=== PATIENT | female | born 1940 | race Hispanic/Latino ===

== ENCOUNTER 2019-11-21 15:00 | Emergency (ER) | payer MEDICARE ==
[~2019-11-21] VITALS: Ht 157.5 cm; Wt 79.8 kg
[~2019-11-21 15:00] MED LIST: COMBIGAN EYE DRO5 ML OU; LATANOPROST2.5 ML OU; LEVOTHYROXINE50 MCG PO; LEVOXYL PO; LISINOPRIL-HCT1 EAC2 PO
--- NOTE | 2019-11-21 15:36 | Emergency Department Note ---
History of Present Illnes History of Present Illness Chief Complaint: rash History of Present Illness This is a 78 year old female, with a history of hypertension and hyperlipidemia, who presents with a one-week history of a rash on the back of her neck that is pruritic. Patient states that she had been leaning her neck on a blanket, which she thought might be irritating her neck, so she stopped using the blanket 2 days ago. She also noted that the rash spread to the anterior neck area over the last several days. There is no drainage, or vesicles on the rash. She has been applying some cortisone cream to the area on her neck, and she took Claritin yesterday. She denies any new lotions, soaps, or other new personal hygiene items. She denies any history of eczema, psoriasis, or other chronic skin conditions. Patient denies any itching of the scalp. Historian: Patient Arrival Mode: Car Nocturnist Physician Required: No Onset (how long ago): week(s) (1) Location: back of neck Quality: pruritic Radiation: Reports non-radiation Severity: moderate Onset quality: sudden Duration (how long): week(s) (1) Timing of current episode: constant Progression: unchanged Chronicity: new Context: Denies recent illness, Denies recent surgery, Denies recent travel, Denies new medications Relieving factors: none Exacerbating factors: none Associated symptoms: Reports denies other symptoms Treatments prior to arrival: other (Cortisone cream) Past Medical/Family History Physician Review I have reviewed the patient's past medical and family history. Any updates have been documented here. Past Medical History Recent Fever: No Clinical Suspicion of Infectio: No New/Unexplained Change in Ment: No Past Medical History: Hypertension, Hyperlipedemia Other Medical History: GLAUCOMA Past Surgical History: Cholecysctectomy Other Surgery: LEFT KNEE ARTHROSCOPY Social History Smoking Cessation: Never Smoker Alcohol Use: Occasional Any Illegal Drug Use: No TB Exposure/Symptoms: No Physically hurt or threatened: No Family History Family history of heart diseas: No Other Last Tetanus: UNKNOWN Review of Systems Review of Systems Constitutional: Denies chills, Denies fever EENTM: Reports no symptoms Cardiovascular: Reports no symptoms Respiratory: Denies chest congestion, Denies cough Gastrointestinal: Denies nausea, Denies vomiting Musculoskeletal: Denies joint pain, Denies joint swelling Integumentary: Reports rash (anterior and posterior neck, pruritic rash;) Neurological: Reports no symptoms Psychological: Reports no symptoms Review of other systems: All other systems negative Physical Exam Related Data Allergies: Coded Allergies: Penicillins (Verified Allergy, Mild, RASH, 01/28/14) cortisone (Verified Allergy, Unknown, LEG CRAMPS, 07/11/18) Vital signs reviewed: Yes Physical Exam CONSTITUTIONAL Constitutional: Present well-developed, Present well-nourished; Absent distressed, Absent ill appearing HENT HENT: Present normocephalic, Present atraumatic, Present oropharynx clear/moist, Present nose normal HENT L/R: Present left ext ear normal, Present right ext ear normal EYES Eyes: Reports PERRL, Reports conjunctivae normal NECK Neck: Present ROM normal PULMONARY Pulmonary: Present effort normal, Present breath sounds normal CARDIOVASCULAR Cardiovascular: Present regular rhythm, Present heart sounds normal, Present capillary refill normal, Present normal rate GASTROINTESTINAL GENITOURINARY SKIN Skin: Present warm, Present dry, Present rash (slightly erythematous, maculopapular rash on the nape of the neck and also on the anterior neck, without warmth or drainage.) MUSCULOSKELETAL Musculoskeletal: Present ROM normal NEUROLOGICAL Neurological: Present alert, Present oriented x 3, Present no gross motor or sensory deficits PSYCHOLOGICAL Psychological: Present mood/affect normal, Present judgement normal Assessment & Plan Medical Decision Making MDM - Use the Triamcinolone Cream, as directed, 3 times per day as needed for this rash. You will likely need to treat for at least 7-10 days, to resolve the rash. - In addition to the prescribed cream, recommend that you take Zyrtec/Cetirizine 10 mg - 1 pill daily 10-14 days. - Follow-up with your Primary Care Physician next week, if your symptoms are not improving. Rx handwritten, as unable to input directions for printed Rx. The Rx given to patient was: Triamcinolone Cream 0.1 % apply small amount to rash tid, prn, avoid face. Disp 30 gram tube, no RF. Assessment & Plan Final Impression: (1) Contact dermatitis (2) Hypertension (3) Hyperlipidemia Depart Disposition: HOME, SELF-FPC Meds Reported Medications Levothyroxine Sodium (LEVOTHYROXINE SODIUM) 50 Mcg Tablet, 50 MCG PO DAILY, #30 TAB 01/28/14 Latanoprost (LATANOPROST) 2.5 Ml Drops, OU BEDTIME 05/18/12 Brimonidine Tartrate (COMBIGAN EYE DROPS) 5 Ml Drpette, OU BID INSTILL 1 DROP EACH EYE BID 05/18/12 Lisinopril/Hydrochlorothiazide (LISINOPRIL-HCTZ 10-12.5 MG TAB) 1 Each Tablet, PO DAILY 05/18/12 JOSE ALFREDO TREVIZO MD Nov 21, 2019 15:36
--- OUTSIDE RECORDS SUMMARY | 2019-11-21 16:20 | XMS REPORT ---
Author Author MUNIRA Vega Organization Unknown Address Unknown Phone Care Team Providers Care Recycling Manager Name Role Phone Travis Vegafina PP Reason for Referral No Reason for Referral was given. History of Present Illness No HPI available. Problems * Normal Routine History And Physical Senior Citizen (65-80) (V70.0); ( Active) * Hypertension (401.9); (Active) * Hyperlipidemia (272.4); (Active) * Hyperglycemia (790.29); (Active) * Hypothyroidism (244.9); (Active) * Diabetes Mellitus (250.00); (Active) Medication * Fosamax 70 MG Oral Tablet; TAKE 1 TABLET ONCE WEEKLY. (Active) * Lisinopril-Hydrochlorothiazide 10-12.5 MG Oral Tablet; TAKE 1 TABLET DAILY. (Active) * Levothyroxine Sodium 75 MCG Oral Tablet; TAKE 1 TABLET DAILY. (Active) * Latanoprost 0.005 % Ophthalmic Solution (Active) Allergies and Adverse Reactions * Penicillins (Active) Past Medical History * History of Osteoarthritis (V13.4); (Resolved) * History of Edema (782.3); (Resolved) * History of Glaucoma (365.9); (Resolved) * History of Abnormal Liver Function Test (790.6); (Resolved) * History of Anxiety (Symptom) (300.00); (Resolved) * History of Edema (782.3); (Resolved) * History of Osteopenia (733.90); (Resolved) Immunization * Td - Administered on: 09/18/2009 * Pneumo (Pneumovax) - Administered on: 09/18/2009 * Influenza - Administered on: 02/01/2011 Family History * Maternal history of Cancer (Active) * Paternal history of Congestive Heart Failure (Active) Social History * Marital History - Single (Active) * Never A Smoker (Active) Advance Directives * No Advance Directives available. Encounters * AUDIT 01/09/2013 * ECL, Provider: CHRISTAL VEGA, Status: Lauri, Time: 10:30 AM 01/10/2013
--- OUTSIDE RECORDS SUMMARY | 2019-11-21 16:20 | XMS REPORT | Continuity of Care Document ---
Author Author Vannessa [place] [employer] MUNIRA [employer] Address Unknown Phone Unavailable Care Team Providers Care Slackman Name Role Phone [employer] Unavailable Un available Problems Problem Status Onset Date Classification Date Reported Comments Source E04.1 Active 08/08/2017 [facility] M23.209 E03.9 Active 12/02/2016 [facility] UNK Active 0 06/17/2016 [facility] Anxiety (finding) Resolved Problem 08/18/2017 [facility] Dysphagia (disorder) Resolved Problem 08/18/2017 [facility] Diabetes mellitus (disorder) R esolved Problem 01/2018 [facility] Glaucoma (disorder) Resolved Problem 08/18/2017 [facility] History of - musculoskeletal disease (co ntext-dependent category) Resolved Pr oblem 08/18/2017 [facility] Hyperlipidemia (disorder) Reso lved Problem 01/2018 [facility] Hypertensive disorder, systemic arterial (disorder) Resolved Problem 08/18/2017 [facility] Hypothyroidism (disorder) Reso lved Problem 01/2018 [facility] Hypertension Active 08/03/2013 [facility] Hyperlipidemia Active 08/03/2013 [facility] Hyperglycemia Active 08/03/2013 [facility] Hypothyroidism Active 08/03/2013 [facility] Diabetes Mellitus Active 08/03/2013 [facility] Arthralgia Of The Left Knee/Patella/Tibia/Fibula Active 08/03/2013 [facility] Vaccines Prophylactic Need Against Influenza Active 08/03/2013 [facility] [place] Active 08/03/2013 [facility] Knee Swelling Active 08/03/2013 [facility] DERANGEMENT OF UNSP MENISCUS DUE TO OLD Active [facility] HYPOTHYROIDISM, UNSPECIFIED Ac tive [facility] Medications Medication Details Route Status Patient Instructions Ordering Provider Order Date Source Sodium Chloride 0.154 MEQ/ML Injectable Solution 1,000 mL, Rate: 25 ml/hr, Infuse over: 40 hr, Route: IV, Dosing Weight 60 kg, Total Volume: 1,000, Start date: 07/13/16 8:36:00 CDT, Duration: 1 day, Stop date: 07/14/16 8:35:00 CDT Inactive 07/13/2016 [facility] Vitamin D2 PO, 0 Refill(s) Active 07/12/2016 [facility] levothyroxine 50 mcg (0.05 mg) oral tablet 50 microgram = 1 tab, PO, Daily, 0 Refill(s) Active 07/12/2016 [facility] lisinopril 20 mg oral tablet 2 0 mg = 1 tab, PO, Daily, 0 Refill(s) Active 07/12/2016 [facility] hydrochlorothiazide 12.5 mg oral tablet 12.5 mg = 1 tab, PO, Daily, 0 Refill(s) Active 07/12/2016 [facility] latanoprost 0.05 MG/ML Ophthalmic Solution 1 drp, QPM, 0 Refill(s) Active 07/12/2016 [facility] Brimonidine tartrate 2 MG/ML / Timolol 5 MG/ML Ophthalmic Solution [Combigan] 1 drp, BOTH EYES, Q12H, 0 Refill(s) Active 07/12/2016 [facility] Vitamin B12 0 Refill(s) Active 07/12/2016 [facility] Meloxicam 7.5 MG Oral Tablet ; Start Date: 08/03/2013; End Date: (Active) Active 08/03/2013 [facility] ALPRAZolam 0.25 MG Oral Tablet ; Start Date: 05/21/2013 (Active) Active 05/21/2013 [facility] Diclofenac-Misoprostol 75-0.2 MG Oral Ta blet Delayed Release ; Start Date: 01/10/2013 (Active) Active 01/10/2013 [facility] Lisinopril-Hydrochlorothiazide 10-12.5 MG Oral Tablet ; Start Date: ; End Date: (Active) Inactive [facility] Fosamax 70 MG Oral Tablet (Ac tive) Active [facility] Lisinopril-Hydrochlorothiazide 10-12.5 MG Oral Tablet (Active) Active [facility] Levothyroxine Sodium 75 MCG Oral Tablet (Active) Active [facility] Latanoprost 0.005 % Ophthalmic Solution (Active) Active [facility] Allergies, Adverse Reactions, Alerts Substance Category Reaction Severity Reaction type Status Date Reported Comments Source cortisone Assertion Drug allergy Active [facility] penicillins Assertion Drug allergy Active [facility] Penicillins drug allergy drug allergy Active [facility] Cortisone NILSAD drug allergy drug allergy Active [facility] Immunizations Immunization Date Given Site Status Last Updated Comments Source Fluzone Intramuscular Injectable 01/10/2013 completed [facility] Influenza 02/01/2011 completed [facility] Td 09/18/2009 completed [facility] Pneumo (Pneumovax) 09/18/2009 completed [facility] Results No Data Provided for This Section Pathology Reports No Data Provided for This Section Diagnostic Reports Report Value Date Source Thyroid US EXAM: US THYROID CLINICAL INDICATION: 76 years year-old Female with - thyroid nodules COMPARISON: US thyroid 12/20/2016 TECHNIQUE: Sonographic evaluation of the thyroid gland is performed. FINDINGS: MEASUREMENTS: The right thyroid gland measures 1.3 x 4.3 x 1.9 cm. Normal color Doppler flow is visualized. The left thyroid gland measures 1.2 x 4.2 x 1.7 cm. Normal color Doppler flow is visualized. The thyroid isthmus measures 0.3 cm in thickness. NODULES: Nodule #: 1 - Size: 0.6 x 0.6 x 0.6 cm, previously 0 .6 x 0.6 x 0.6 cm - Location: Mid right gland - Composition: mixed cystic/solid: 1 poi nt - Echogenicity: hypoechoic: 2 points - Shape: wider than tall: 0 points - Margin: smooth: 0 points - Echogenic foci?: none: 0 points TI-RADS Category: TR3: 3 points. Mildly suspicious. If >= 1.5 cm follow up at 1,3 and 5 years. If >=2.5 cm FNA Nodule #: 2 - Size: 0.6 x 0.5 x 0.5 cm cm, previousl y 0.5 x 0.4 x 0.5 cm - Location: Mid left gland - Composition: mixed cystic/solid: 1 poi nt - Echogenicity: hypoechoic: 2 points - Shape: wider than tall: 0 points - Margin: smooth: 0 points - Echogenic foci?: none: 0 points TI-RADS Category: TR3: 3 points. Mildly suspicious. If >= 1.5 cm follow up at 1,3 and 5 years. If >=2.5 cm FNA Nodule #: 3 - Size: 0.3 x 0.3 x 0.2 cm, previously 0 .4 x 0.4 x 0.4 cm - Location: Mid left gland - Composition: mixed cystic/solid: 1 poi nt - Echogenicity: hypoechoic: 2 points - Shape: wider than tall: 0 points - Margin: smooth: 0 points - Echogenic foci?: none: 0 points TI-RADS Category: TR3: 3 points. Mildly suspicious. If >= 1.5 cm follow up at 1,3 and 5 years. If >=2.5 cm FNA Nodule #: 4 - Size: 0.3 x 0.3 x 0.3 cm - Location: Inferior left gland - Composition: mixed cystic/solid: 1 poi nt - Echogenicity: hypoechoic: 2 points - Shape: wider than tall: 0 points - Margin: smooth: 0 points - Echogenic foci?: large comet tail don fact: 0 points TI-RADS Category: TR3: 3 points. Mildly suspicious. If >= 1.5 cm follow up at 1,3 and 5 years. If >=2.5 cm FNA OTHER: There is no adjacent jugular chain lymphadenopathy. IMPRESSION: 1. Multiple stable subcentimeter TI-RADS 3 nodules as described above. SL: [id number] 08/15/2017 [facility] Knee wo contrast MRI MR LEFT K NEE WITHOUT CONTRAST HISTORY: Per pt c/o pain to the center of left knee. She feels stiffness and popping upon walking. M23.209 chronic meniscal tear of knee., 76-year-old female reports left knee pain, mechanical symptoms, and stiffness for approximately one month, pain with ambulation, history of prior left knee arthroscopy COMPARISON: None available TECHNIQUE: Multiplanar, multisequence noncontrast imaging of the knee. FINDINGS: MENISCI: 1. Medial meniscus: Radial oblique tear in the posterior horn of the medial meniscus which primarily involves the meniscal undersurface. 2. Lateral meniscus: Severe complex dege nerative macerated tearing throughout the lateral meniscus with severe attenuation of the meniscus body. CARTILAGE: 3. Medial compartment cartilage: Moderat e irregular cartilage thinning of the medial femoral condyle without subchondral cystic change. 4. Lateral compartment cartilage: Severe chronic diffuse full-thickness cartilage loss with articular cortex sclerosis, remodeling, and subchondral cystic change. 5. Patellofemoral cartilage: Patellofemo ral cartilage is grossly preserved. CRUCIATE LIGAMENTS: 6. Anterior cruciate ligament: Severe mu coid degeneration of the ACL with degenerative intraosseous ganglion cysts in the distal femur at the ACL attachment site. 7. Posterior cruciate ligament: Mild deg eneration of the posterior cruciate ligament. Ganglion cyst within the posterior intercondylar notch adjacent to the posterior cruciate ligament measures 5 x 15 x 15 mm. COLLATERAL LIGAMENTS: 8. Medial collateral ligament complex: N ormal. 9. Lateral collateral ligament complex: Normal. EXTENSOR MECHANISM: 10. Intact patellar and quadriceps tendo ns. 11. No patellar tilt or subluxation. OTHER: 12. No fracture or aggressive osseous le cale. 13. Small joint effusion. No intra-artic ular loose body is seen. 14. Tricompartmental degenerative osteop hytosis, worst in the lateral compartment. IMPRESSION: 1. Advanced macerated tearing throughout the lateral meniscus with severely diminutive meniscus body. 2. Advanced lateral compartment arthrosi s demonstrates diffuse full-thickness chronic cartilage loss and prominent degenerative articular cortex remodeling with subchondral cystic change. 3. Radial oblique tear in the posterior horn of the medial meniscus which primarily involves the meniscal undersurface. 4. Mild/moderate medial compartment pottery decoration designer zafar chondromalacia. 5. 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 6. Mild degeneration of the posterior cr uciate ligament with ganglion cyst in the posterior intercondylar notch adjacent to the PCL. Thank you for referring your patient to [facility] and [facility]. MARCUS: [id number] 12/23/2016 [facility] Thyroid US Patient Name: MUNIRA GOLDMAN : 1940; Age: 76 years y/o Female MR: [id number] Study: Thyroid US 12/20/2016 2:19 PM CDT Ordering Physician: CHRISTAL COLLADO Clinical Indication: E03.9 Hypothyroidism, unspecified - E03.9 Hypothyroidism, unspecified; Comparison: None Thyroid ultrasound exam Right lobe 4.2 x 1.5 x 1.3 cm. Left lobe 4.5 x 1.4 x 1.3 cm. Within the right lobe is a 6 mm complex cystic lesion in the midpole and a 2 mm isoechoic, possibly cystic lesion in the upper pole. Within the left lobe are 4 mm and 5 mm hypoechoic solid lesions in the upper pole. No dominant mass or additional suspicious lesions seen. There is no regional adenopathy. IMPRESSION: Numerous small subcentimeter thyroid lesions as discussed above. Other significant finding. SL: JMAT 12/20/2016 [facility] Consultation Notes No Data Provided for This Section Discharge Summaries No Data Provided for This Section History and Physicals No Data Provided for This Section Vital Signs Vital Sign Value Date Comments Source Systolic (mm Hg) 113 07/13/2016 [facility] Diastolic (mm Hg) 62 07/13/2016 [facility] Respitory Rate 16 07/13/2016 [facility] Systolic (mm Hg) 125 07/13/2016 [facility] Diastolic (mm Hg) 70 07/13/2016 [facility] Respitory Rate 14 07/13/2016 [facility] Systolic (mm Hg) 94 07/13/2016 [facility] Diastolic (mm Hg) 58 07/13/2016 [facility] Respitory Rate 17 07/13/2016 [facility] Weight 60 0 07/12/2016 [facility] BMI Calculated 24.19 07/12/2016 [facility] Height 157.48 cm 07/12/2016 [facility] Encounters Location Location Details Encounter Type Encounter Number Reason For Visit Attending Provider ADM Date DC Date Status Source AUDIT [id number] 01/09/2013 01/09/2013 [facility] ECL, Provi jasmina: CHRISTAL COLLADO, Status: Pen, Time: 10:30 AM [id number] 01/11/20 13 01/09/2013 [facility] AUDIT [id number] 01/10/2013 01/10/2013 [facility] AUDIT [id number] 03/05/2013 03/05/2013 [facility] AUDIT [id number] 07/17/2013 07/17/2013 [facility] AUDIT [id number] 08/03/2013 08/03/2013 [facility] Outpatient [id number] Giles Smith 07/13/2016 07/13/2016 [facility] Outpatient [id number] CHRISTAL COLLADO 12/20/2016 12/21/2016 [facility] Outpatient [id number] CHRISTAL COLLADO 12/23/2016 12/24/2016 [facility] Outpatient [id number] CHRISTAL COLLADO 08/15/2017 08/16/2017 [facility] Procedures Procedure Code Date Perfomer Comments Source Arthroscopy of knee 448176551 [facility] Biopsy of breast [id number] [facility] Cataract surgery [id number] [facility] Cholecystectomy [id number] [facility] st Partial hysterectomy [id number] [facility] Assessment and Plan No Data Provided for This Section Plan of Care Plan of Care Date Source [QLH] CBC (INCLUDES DIFF/PLT) 08/02/2013 Routine[QLH] CMP W/EGFR 08/02/2013 Routine[QH] LIPID PANEL WITH REFLEX TO DIRECT LDL 08/02/2013 Routine[QLH] HEMOGLOBIN A1c 08/02/2013 Routine[QLH] TSH, 3RD GENERATION W/REFLEX TO FT4 08/02/2013 Routine 08/03/2013 [facility] Social History Social History Date Source Social History TypeResponse Alcohol Past Smoking Status Never smoker; Exposure to Tobacco Smoke None; Cigarette Smoking Last 365 Days No; Reg Smoking Cessation Counseling No entered on: 07/12/16 07/12/2016 [facility] Marital History - Single (Active) Never A Smoker (Active) Occupation: Retired (Active) 08/03/2013 [facility] Family History Value Date S ource Maternal history of Cancer (Activ e) Paternal history of Congestive Heart Failure (Active) 08/03/2013 [facility] Maternal history of Cancer (Activ e) Paternal history of Congestive Heart Failure (Active) 07/17/2013 [facility] Maternal history of Cancer (Activ e) Paternal history of Congestive Heart Failure (Active) 03/05/2013 [facility] Maternal history of Cancer (Activ e) Paternal history of Congestive Heart Failure (Active) 01/10/2013 [facility] Maternal history of Cancer (Activ e) Paternal history of Congestive Heart Failure (Active) 01/09/2013 [facility] Advance Directives Order Name Results Value Date Source Advance Directives Advance Dir ectives No Advance Directives available. 08/03/2013 [facility] Advance Directives Advance Dir ectives No Advance Directives available. 07/17/2013 [facility] Advance Directives Advance Dir ectives No Advance Directives available. 03/05/2013 [facility] Advance Directives Advance Dir ectives No Advance Directives available. 01/10/2013 [facility] Advance Directives Advance Dir ectives No Advance Directives available. 01/09/2013 [facility] Functional Status No Data Provided for This Section
--- OUTSIDE RECORDS SUMMARY | 2019-11-21 16:20 | XMS REPORT ---
Author Author Robbin MUNIRAMATTHEW Ribera Organization Unknown Address Unknown Phone Care Team Providers Care Associate Professor Of Chemistry Name Role Phone Robbin Bacilio PP Unavailable Reason for Referral No Reason for Referral was given. History of Present Illness No HPI available. Problems * Normal Routine History And Physical Senior Citizen (65-80) (V70.0); ( Active) * Hypertension (401.9); (Active) * Hyperlipidemia (272.4); (Active) * Hyperglycemia (790.29); (Active) * Hypothyroidism (244.9); (Active) * Diabetes Mellitus (250.00); (Active) * Arthralgia Of The Left Knee/Patella/Tibia/Fibula (719.46); (Active) * Vaccines Prophylactic Need Against Influenza (V04.81); (Active) Medication * Fosamax 70 MG Oral Tablet; TAKE 1 TABLET ONCE WEEKLY. (Active) * Lisinopril-Hydrochlorothiazide 10-12.5 MG Oral Tablet; TAKE 1 TABLET DAILY. NEEDS OFFICE VISIT; Start Date: ; End Date: (Active) * Diclofenac-Misoprostol 75-0.2 MG Oral Tablet Delayed Release; 1 tab po qd-bid; Start Date: 01/10/2013 (Active) * Levothyroxine Sodium 75 MCG Oral Tablet; TAKE 1 TABLET DAILY. (Active) * Latanoprost 0.005 % Ophthalmic Solution (Active) * ALPRAZolam 0.25 MG Oral Tablet; 1 po BID prn; Start Date: 05/21/2013 (Active) Allergies and Adverse Reactions * Penicillins [...] 09/18/2009 * Influenza - Administered on: 02/01/2011 * Fluzone Intramuscular Injectable (Lot #: [id number]) - Administered on: 01/10/2013 Family History * Maternal history of Cancer (Active) * Paternal history of Congestive Heart Failure (Active) Social History * Marital History - Single (Active) * Never A Smoker (Active) Advance Directives * No Advance Directives available. Encounters * AUDIT 07/17/2013
--- OUTSIDE RECORDS SUMMARY | 2019-11-21 16:20 | XMS REPORT ---
Author Author MUNIRA Arce Organization Unknown Address Unknown Phone Care Team Providers Care Staff Respiratory Therapist Name Role Phone Cydney Arce PP Unavailable Reason for Referral No Reason [...] Tablet; TAKE 1 TABLET DAILY. (Active) * Diclofenac-Misoprostol 75-0.2 MG Oral Tablet [...] 02/01/2011 * Fluzone Intramuscular Injectable (Lot #: [id number]) - Administered on: 01/10/2013 Family History * Maternal history of Cancer (Active) * Paternal history of Congestive Heart Failure (Active) Social History * Marital History - Single (Active) * Never A Smoker (Active) Advance Directives * No Advance Directives available. Encounters * AUDIT 01/10/2013
--- OUTSIDE RECORDS SUMMARY | 2019-11-21 16:20 | XMS REPORT ---
Author Author MUNIRA Saez Organization Unknown Address Unknown Phone Care Team Providers Care Electrical & Instrumentation Supervisor Name Role Phone Pauline Saez PP Unavailable Reason for Referral No Reason [...] 10-12.5 MG Oral Tablet; TAKE 1 TABLET DAILY.; Start Date: ; End Date: (Active) * [...] 02/01/2011 * Fluzone Intramuscular Injectable (Lot #: [id number]) - Administered on: 01/10/2013 Family History * Maternal history of Cancer (Active) * Paternal history of Congestive Heart Failure (Active) Social History * Marital History - Single (Active) * Never A Smoker (Active) Advance Directives * No Advance Directives available. Encounters * AUDIT 03/05/2013
--- OUTSIDE RECORDS SUMMARY | 2019-11-21 16:20 | XMS REPORT ---
Author Author TOBIAS MUNIRA CHRISTAL Organization Unknown Address Unknown Phone Care Team Providers Care Diesel Powerplant Mechanic Name Role Phone CHRISTAL COLLADO PP Unavailable Reason for Referral No Reason for Referral was given. History of Present Illness No HPI available. Problems * Normal Routine History And Physical Senior Citizen (65-80) (V70.0); ( Active) * Hyperlipidemia (272.4); (Active) * Hypothyroidism (244.9); (Active) * Diabetes Mellitus (250.00); (Active) * Vaccines Prophylactic Need Against Influenza (V04.81); (Active) * Limping (781.2); (Active) * Arthralgia Of The Left Knee/Patella/Tibia/Fibula (719.46); (Active) * Hyperglycemia (790.29); (Active) * Hypertension (401.9); (Active) * Knee Swelling (719.08); (Active) Medication * Fosamax 70 MG Oral Tablet; TAKE 1 TABLET ONCE WEEKLY. (Active) * Lisinopril-Hydrochlorothiazide 10-12.5 MG Oral Tablet; TAKE ONE TABLET ONCE DAILY; Start Date: ; End Date: (Active) * Levothyroxine Sodium 75 MCG Oral Tablet; TAKE 1 TABLET DAILY. (Active) * Latanoprost 0.005 % Ophthalmic Solution (Active) * ALPRAZolam 0.25 MG Oral Tablet; 1 po BID prn; Start Date: 05/21/2013 (Active) * Meloxicam 7.5 MG Oral Tablet; TAKE 1 TABLET TWICE DAILY NEEDED.; Start Date: 08/03/2013; End Date: (Active) Allergies and Adverse Reactions * Penicillins (Active) * Cortisone POWD (Active) Past Medical History * History of [...] 02/01/2011 * Fluzone Intramuscular Injectable (Lot #: [id number]) - Administered on: 01/10/2013 Family History * Maternal history of Cancer (Active) * Paternal history of Congestive Heart Failure (Active) Social History * Marital History - Single (Active) * Never A Smoker (Active) * Occupation: Retired (Active) Treatment Plan * [QLH] CBC (INCLUDES DIFF/PLT) 08/02/2013 Routine * [QLH] CMP W/EGFR 08/02/2013 Routine * [QH] LIPID PANEL WITH REFLEX TO DIRECT LDL 08/02/2013 Routine * [QLH] HEMOGLOBIN A1c 08/02/2013 Routine * [QLH] TSH, 3RD GENERATION W/REFLEX TO FT4 08/02/2013 Routine Advance Directives * No Advance Directives available. Encounters * AUDIT 08/03/2013
--- OUTSIDE RECORDS SUMMARY | 2019-11-21 16:21 | XMS REPORT | Continuity of Care Document ---
Author Author [facility] t Organization [facility] Address [address] [place] [address] Phone Unavailable Care Team Providers Care Signs Sales Representative Name Role Phone Jim BORREGO MD PCP KELLY DAVALOS Attphys Unavailable CHRISTAL COLLADO Attphys Unavailable Alex Smith Attphys Payers Payer Name Policy Type Policy Number Effective Date Expiration Date Guevara matthew [employer] [place] [facility] [id number] 2008 00:00:00 [facility] Problems Condition Name Condition Details Condition Category Status Onset Date Resolution Date Last Treatment Date Treating Clinician Comments Source E04.1 E04. 1 Active 08/08/2017 [facility] Active 2017-08-08 00:00:00 2017-08-15 09:43:00 Vannessa Nguyen M23.209 E03.9 M23. 209 E03.9 Active 12/02/2016 [facility] Active 2016-12-02 00:00:00 2016-12-23 14:00:00 Vannessa Nguyen UNK UNK Active 06/17/2016 [facility] Active 2016-06-17 00:00:00 2016-07-13 10:19:00 Brenda Nguyen Anxiety (finding) Anxi ety (finding) Resolved Problem 08/18/2017 [facility] Problem Resolved 2017-08-18 01:09:03 Vannessa Nguyen Dysphagia (disorder) Dysp hagia (disorder) Resolved Problem 08/18/2017 [facility] Problem Resolved 2017-08-18 01:09: 03 Vannessa Nguyen Diabetes mellitus (disorder) D iabetes mellitus (disorder) Resolved Problem 08/18/2017 [facility] Problem Resolved 2017-08-18 01:09:03 Vannessa Nguyen Glaucoma (disorder) Glau coma (disorder) Resolved Problem 08/18/2017 [facility] Problem Resolved 2017-08-18 01:09: 03 Vannessa Nguyen History of - musculoskeletal disease (context-dependen t category) History of - musculoskeletal disease (context-dependent category) Resolved Problem 08/18/2017 [facility] Problem Resolved 2017-08-18 01: 09:03 Vannessa Nguyen Hyperlipidemia (disorder) Hype rlipidemia (disorder) Resolved Problem 08/18/2017 [facility] Problem Resolved 2017-08-18 01:09:03 Vannessa Nguyen Hypertensive disorder, systemic arterial (disorder) Hypertensive disorder, systemic arterial (disorder) Resolved Problem 08/18/2017 [facility] Problem Resolved 2017-08-18 01:09:03 Vannessa Nguyen Hypothyroidism (disorder) Hypo thyroidism (disorder) Resolved Problem 08/18/2017 [facility] Problem Resolved 2017-08-18 01:09:03 Vannessa Nguyen Hypertension Hype rtension Active 08/03/2013 [facility] Problem Active 2013-08-03 21:02:36 [facility] [place] Hyperlipidemia Hype rlipidemia Active 08/03/2013 [facility] Problem Active 2013-08-03 21:02:36 [facility] Hyperglycemia Hype rglycemia Active 08/03/2013 [facility] Problem Active 2013-08-03 21:02:36 [facility] [place] Hypothyroidism Hypo thyroidism Active 08/03/2013 [facility] Problem Active 2013-08-03 21:02:36 [facility] Diabetes Mellitus Diab etes Mellitus Active 08/03/2013 [facility] Problem Active 2013-08-03 21:02:36 [facility] Arthralgia Of The Left Knee/Patella/Tibia/Fibula Arthralgia Of The Left Knee/Patella/Tibia/Fibula Active 08/03/2013 [facility] Problem Active 2013-08-03 21:02:36 [facility] Vaccines Prophylactic Need Against Influenza Vaccines Prophylactic Need Against Influenza Active 08/03/2013 [facility] Problem Active 2013-08-03 21:02:36 [facility] [place] Limping Limp ing Active 08/03/2013 [facility] Problem Active 2013-08-03 21:02:36 [facility] Knee Swelling Knee Swelling Active 08/03/2013 [facility] Problem Active 2013-08-03 21:02:36 [facility] [place] DERANGEMENT OF UNSP MENISCUS DUE TO OLD DERANGEMENT OF UNSP MENISCUS DUE TO OLD Active [facility] Active 2016-12-23 14:00:00 [facility] HYPOTHYROIDISM, UNSPECIFIED HY POTHYROIDISM, UNSPECIFIED Active [facility] Active 2016-12-20 14:15:00 [facility] Allergies, Adverse Reactions, Alerts Allergy Name Allergy Type Status Severity Reaction(s) Onset Date Inacti ve Date Treating Clinician Comments Source Penicillin Allergy to Substance Active Mild RASH 2014-01-28 00:00:00 [facility] cortisone cortisone Active [facility] penicillins penicillins Active [facility] Penicillins Penicillins Active [facility] Cortisone POWD Cortisone POWD Active [facility] Family History Family Member Diagnosis Comments Start Date Stop Date Source Unknown Family Member Family History 2013-01-09 22:46:29 2 22:46:29 [facility] Social History Social Habit Start Date Stop Date Quantity Comments Source Social History 2013-08-03 21:02:36 2013-08-03 21:02:36 [facility] Medications Ordered Medication Name Filled Medication Name Start Date Stop Da te Current Medication? Ordering Clinician Indication Dosage Frequency Signature (SIG) Comments Components Source Sodium Chloride 0.154 MEQ/ML Injectable Solution 2016-07-13 13:3 6:00 No 1,000 mL, Rate: 25 ml/hr, In fuse over: 40 hr, Route: IV, Dosing Weight 60 kg, Total Volume: 1,000, Start date: 07/13/16 8:36:00 CDT, Duration: 1 day, Stop date: 07/14/16 8:35:00 CDT [facility] baudilio Vitamin D2 2016-07-12 18:14:00 Yes PO, 0 Ref ill[facility] lev[facility]roxine 50 mcg (0.05 mg) oral tablet 2016-07-12 18:14:00 Yes 50 microgram = 1 tab, PO, Daily, 0 Refill[facility]s) [facility] lisinopril 20 mg oral tablet 2016-07-12 18:13:00 Yes 20 mg = 1 tab, PO, Daily, 0 Refill(s) [facility] hydrochlorothiazide 12.5 mg oral tablet 2016-07-12 18:13:00 Yes 12.5 mg = 1 tab, PO, Daily, 0 Refill(s) Eliu Nguyen latanoprost 0.05 MG/ML Ophthalmic Solution 2016-07-12 18:13:00 Yes 1 drp, QPM, 0 Refill(s) Vannessa Nguyen Brimonidine tartrate 2 MG/ML / Timolol 5 MG/ML Ophthalmic So lution [Combigan] 2016-07-12 18:13:00 Yes 1 drp, BOTH EYES, Q12H, 0 Refill(s) Vannessa Nguyen Vitamin B12 2016-07-12 18:13:00 Yes 0 Refill (s) Vannessa Nguyen Fosamax 70 MG Oral Tablet 2013-08-03 21:02:36 Yes (Active) Vannessa Nguyen Levothyroxine Sodium 75 MCG Oral Tablet 2013-08-03 21:02:36 Yes (Active) Vannessa Nguyen Latanoprost 0.005 % Ophthalmic Solution 2013-08-03 21:02:36 Yes (Active) Vannessa Nguyen Meloxicam 7.5 MG Oral Tablet 2013-08-03 05:00:00 Yes ; Start Date: 08/03/2013; End Date: (Active) Vannessa Nguyen ALPRAZolam 0.25 MG Oral Tablet 2013-05-21 06:00:00 Yes ; Start Date: 05/21/2013 (Active) Vannessa Nguyen Lisinopril-Hydrochlorothiazide 10-12.5 MG Oral Tablet 2013-01-10 17:04:15 Yes (Active) Vannessa Saunders nn Diclofenac-Misoprostol 75-0.2 MG Oral Tablet Delayed Release 2013-01-10 05:00:00 Yes ; Start Date: 01/10/2013 (Act prosper) Vannessa Nguyen Lisinopril-Hydrochlorothiazide 10-12.5 MG Oral Tablet Yes ; Start Date: ; End Date: 04/1899 (Active) Vannessa Nguyen Brimonidine Tartrate (Combigan Eye Drops) 5 Ml Drpette Brimonidine Tartrate (Combigan Eye Drops) 5 Ml Drpette Yes Tw [facility] Latanoprost 2.5 Ml Drops Latanoprost 2.5 Ml Drops Yes Bedtime [facility] Levothyroxine Sodium 50 Mcg Tablet Levothyroxine Sodium 50 Mcg Tablet Yes 50 Daily [facility] Lisinopril/Hydrochlorothiazide (Lisinopril-Hctz 10-12. 5 Mg Tab) 1 Each Tablet Lisinopril/Hydrochlorothiazide (Lisinopril-Hctz 10-12.5 Mg Tab) 1 Each Tablet Yes Daily [facility] Levoxyl , 0.075 Mg Oral Levoxyl , 0.075 Mg Oral 2014-01-28 00:00 :00 No .075 Daily [facility] Vital Signs Vital Name Observation Time Observation Value Comments Source Systolic (mm Hg) 2016-07-13 15:45:00 [facility] Diastolic (mm Hg) 2016-07-13 15:45:00 [facility] [place] Respitory Rate 2016-07-13 15:45:00 [facility]ori [facility] [place] Systolic (mm Hg) 2016-07-13 15:30:00 Augie [facility] [place] Diastolic (mm Hg) 2016-07-13 15:30:00 [facility] [place] Respitory Rate 2016-07-13 15:30:00 Memori [facility] [place] Systolic (mm Hg) 2016-07-13 15:15:00 [facility] Diastolic (mm Hg) 2016-07-13 15:15:00 [facility] Respitory Rate 2016-07-13 15:15:00 [facility] [place] Weight 2016-07-12 18:04:00 [facility] BMI Calculated 2016-07-12 18:04:00 [facility] Height 2016-07-12 18:04:00 157.48 [facility] Procedure Date / Time Performed Performing Clinician Marty lerner Arthroscopy of knee [facility] Her king [facility] of [facility] Cataract [facility] anthony Cholecystectomy [facility] Planned Activity Planned Date Details Comments Source Future Scheduled Test 2013-08-03 21:02:36 Plan of Care [code = 1877 6-5] [facility] Encounters Start Date/Time End Date/Time Encounter Type Admission Type Attendi [facility] Facility Care Department Encounter ID Source 2018-07-11 11:55:00 2018-07-11 15:10:00 Departed Emergency Room 1 KELLY DAVALOS [facility] [id number] [facility] 2017-08-15 09:35:00 2017-08-15 23:59:00 [id number] 2016-12-23 13:52:00 2016-12-23 23:59:00 [facility] [id number] 2016-12-20 14:15:00 2016-12-20 23:59:00 [facility] [id number] 2016-07-13 08:31:00 2016-07-13 11:00:00 Outpatient Giles Smith [facility] [id number] 2013-08-03 16:02:36 2013-08-03 16:02:36 Outpatient [facility] [id number] 2013-07-17 15:32:52 2013-07-17 15:32:52 Outpatient [facility] [id number] 2013-03-05 16:32:10 2013-03-05 16:32:09 Outpatient [facility] IE [id number] 2013-01-10 12:04:15 2013-01-10 12:04:15 Outpatient [facility] [id number] 2013-01-09 17:46:29 2013-01-09 17:46:29 Outpatient [facility]IE [facility] [id number] Results Test Description Test Time Test Comments Results Result Comments Source SCR MAMM BILATERAL REHANA CAD DIGITAL 2018-12-12 10:16:33 - SCR MAMM BILATERAL REHANA CAD DIGITALBILATERAL DIGITAL SCREENING MAMMOGRAM 3D/2D WITH CAD: 12/08/2018CLINICAL: Asymptomatic. Digital breast tomosynthesis was performed in addition to routine CC and MLO views. Current mammographic images were evaluated by either a [employer] M-[employer] or a [employer] ImageChecker CAD (computer aided detection system). Comparison is made to exams dated 08/17/2017 mammogram, 017 mammogram, and 01/06/2015 mammogram - [facility]. The tissue of both breasts is heterogeneously dense. This may lower the sensitivity of mammography. There are benign calcifications in both breasts. No suspicious mass, architectural distortion, malignant type calcification, or lymph node abnormality detected. Breast architecture is stable compared to prior exams.IMPRESSION: BENIGNThere is no mammographic evidence of malignancy. Resume annual screening mammography in one year. Harris Calderón M.D. ss/penrad:12/12/2018 10:16:33 Medical Technical Writer: Pam HILL, [facility] sent: BIRADS 1-2 Normal Mammogram BI-RADS: 2 Benign Erythrocyte Sedimentation Rate 2018-07-11 13:51:00 Test Item Erythrocyte Sedimentation Rate (test code = 4537-7) 25 0- 20 [id number] 12:44:00 [facility] [address] [address] Patient Name: MUNIRA GOLDMAN MR #: [id number] : 1940 Age/Sex: 77/F Req #: [id number] Adm Physician: Ordered by: KELLY DAVALOS MD Report #: [id number] Location: [facility] Room/Bed: Procedure: [id number] HOPD/CT BRAIN WO-HOPD Exam Date: 07/11/18 Exam Time: 1230 REPORT STATUS: Signed Exam ination: CT head without contrast Clinical Indication: Headaches. Technique: Transaxial noncontrast images from the skull base through the vertex were obt ained. Sagittal and coronal reformatted images were done. Dose modulation, ite rative reconstruction, and/or weight based adjustment of the mA/kV was utilize d to reduce the radiation dose to as low as reasonably achievable. Comparis on: None. Findings: Scalp: No abnormalities. Bones: Intact. No fract ures. No blastic or lytic lesions. Brain sulci: Appropriate for patient's age. Ventricles: Normal in size and configuration. No hydrocephalus. . Extra-axial space: No abnormalities. Parenchyma: There are subtle pa tchy areas of low-attenuation within subcortical and periventricular white mat ter, nonspecific, but could represent microvascular ischemic disease. No mas ses, hemorrhage, or acute or chronic cortical based vascular insults. Supra sellar region: No abnormalities. Craniocervical junction: The foramen magnum i s patent. No Chiari one malformation. Incidental findings: Atheroscle rotic calcification of the cavernous and supraclinoid internal carotid arterie s. Impression: 1. No acute intracranial finding. 2. Mild chroni c microvascular ischemic change. Signed by: Dr. Shwan Mims M.D. on 12:45 PM Dictated By: SHAWN DYSON MD 1245 Transcribed By: AUSTEN on 07/11/18 1245 COPY TO: KELLY DAVALOS MD
--- OUTSIDE RECORDS SUMMARY | 2019-11-21 16:53 | XMS REPORT | Continuity of Care Document ---
Author Author [facility] t Organization [facility] Address [address] [place] [address] Phone Unavailable Care Team Providers Care Pharmacist Critical Care Name Role Phone Jim BORREGO MD PCP KELLY DAVALOS Attphys Unavailable CHRISTAL COLLADO Attphys Unavailable Alex Smith Attphys Payers Payer Name Policy Type Policy Number Effective Date Expiration Date Guevara matthew [id number] 2008 00:00:00 [facility] Problems Condition Name Condition Details Condition Category [...] (finding) Anxi ety (finding) Resolved Problem 08/18/2017 [facility] Problem Resolved 2017-08-18 01:09:03 Vannessa Nguyen Dysphagia (disorder) Dysp hagia (disorder) Resolved Problem 08/18/2017 [facility] Problem Resolved 2017-08-18 01:09: 03 Vannessa Nguyen Diabetes mellitus (disorder) D iabetes mellitus (disorder) Resolved Problem 08/18/2017 [facility] Problem Resolved 2017-08-18 01:09:03 Vannessa Nguyen Glaucoma (disorder) Glau coma (disorder) Resolved Problem 08/18/2017 [facility] Problem Resolved 2017-08-18 01:09: 03 Vannessa Nguyen History of - musculoskeletal disease (context-dependen t category) History of - musculoskeletal disease (context-dependent category) Resolved Problem 08/18/2017 [facility] Problem Resolved 2017-08-18 01: 09:03 Vannessa Nguyen Hyperlipidemia (disorder) Hype rlipidemia (disorder) Resolved Problem 08/18/2017 [facility] Problem Resolved 2017-08-18 01:09:03 Vannessa Nguyen Hypertensive disorder, systemic arterial (disorder) Hypertensive disorder, systemic arterial (disorder) Resolved Problem 08/18/2017 [facility] Problem Resolved 2017-08-18 01:09:03 Vannessa Nguyen Hypothyroidism (disorder) Hypo thyroidism (disorder) Resolved Problem 08/18/2017 [facility] Problem Resolved 2017-08-18 01:09:03 Vannessa Nguyen Hypertension Hype rtension Active 08/03/2013 [facility] Problem Active 2013-08-03 21:02:36 [facility] [place] Hyperlipidemia Hype rlipidemia Active 08/03/2013 [facility] Problem Active 2013-08-03 21:02:36 [facility] Hyperglycemia Hype rglycemia Active 08/03/2013 [facility] Problem Active 2013-08-03 21:02:36 [facility] [place] Hypothyroidism Hypo thyroidism Active 08/03/2013 [facility] Problem Active 2013-08-03 21:02:36 [facility] Diabetes Mellitus Diab etes Mellitus Active 08/03/2013 [facility] Problem Active 2013-08-03 21:02:36 [facility] Arthralgia Of The Left Knee/Patella/Tibia/Fibula Arthralgia Of The Left Knee/Patella/Tibia/Fibula Active 08/03/2013 [facility] Problem Active 2013-08-03 21:02:36 [facility] Vaccines Prophylactic Need Against Influenza Vaccines Prophylactic Need Against Influenza Active 08/03/2013 [facility] Problem Active 2013-08-03 21:02:36 [facility] [place] Limping Limp ing Active 08/03/2013 [facility] Problem Active 2013-08-03 21:02:36 [facility] Knee Swelling Knee Swelling Active 08/03/2013 [facility] Problem Active 2013-08-03 21:02:36 [facility] [place] DERANGEMENT OF UNSP MENISCUS DUE TO OLD DERANGEMENT OF UNSP MENISCUS DUE TO OLD Active [facility] Active 2016-12-23 14:00:00 [facility] HYPOTHYROIDISM, UNSPECIFIED HY POTHYROIDISM, UNSPECIFIED Active [facility] Active 2016-12-20 14:15:00 [facility] Allergies, Adverse Reactions, Alerts Allergy Name Allergy Type Status Severity Reaction(s) Onset Date Inacti ve Date Treating Clinician Comments Source Penicillin Allergy to Substance Active Mild RASH 2014-01-28 00:00:00 [facility] cortisone cortisone Active [facility] penicillins penicillins Active [facility] Penicillins Penicillins Active [facility] Cortisone POWD Cortisone POWD Active [facility] Family History Family Member Diagnosis Comments Start Date Stop Date Source Unknown Family Member Family History 2013-01-09 22:46:29 2 22:46:29 [facility] Social History Social Habit Start Date Stop Date Quantity Comments Source Social History 2013-08-03 21:02:36 2013-08-03 21:02:36 [facility] Medications Ordered Medication Name Filled Medication Name [...] 1 day, Stop date: 07/14/16 8:35:00 CDT [facility] baudilio Vitamin D2 2016-07-12 18:14:00 Yes PO, 0 Ref ill(s) [facility] lev[facility]ine 50 mcg (0.05 mg) oral tablet 2016-07-12 18:14:00 Yes 50 microgram = 1 tab, PO, Daily, 0 Refill(s) [facility] lisinopril 20 mg oral tablet 2016-07-12 18:13:00 Yes 20 mg = 1 tab, PO, Daily, 0 Refill(s) [facility] hydrochlorothiazide 12.5 mg oral tablet 2016-07-12 18:13:00 [...] Eye Drops) 5 Ml Drpette Yes Tw [facility] Latanoprost 2.5 Ml Drops Latanoprost 2.5 Ml Drops Yes Bedtime [facility] Levothyroxine Sodium 50 Mcg Tablet Levothyroxine Sodium 50 Mcg Tablet Yes 50 Daily [facility] Lisinopril/Hydrochlorothiazide (Lisinopril-Hctz 10-12. 5 Mg Tab) 1 Each Tablet Lisinopril/Hydrochlorothiazide (Lisinopril-Hctz 10-12.5 Mg Tab) 1 Each Tablet Yes Daily [facility] Levoxyl , 0.075 Mg Oral Levoxyl , 0.075 Mg Oral 2014-01-28 00:00 :00 No .075 Daily [facility] Vital Signs Vital Name Observation Time Observation Value Comments Source Systolic (mm Hg) 2016-07-13 15:45:00 [facility] Diastolic (mm Hg) 2016-07-13 15:45:00 [facility] [place] Respitory Rate 2016-07-13 15:45:00 [facility] [place] Systolic (mm Hg) 2016-07-13 15:30:00 [facility] [place] Diastolic (mm Hg) 2016-07-13 15:30:00 [facility] [place] Respitory Rate 2016-07-13 15:30:00 [facility] [place] Systolic (mm Hg) 2016-07-13 15:15:00 [facility] Diastolic (mm Hg) 2016-07-13 15:15:00 [facility] Respitory Rate 2016-07-13 15:15:00 [facility] [place] Weight 2016-07-12 18:04:00 [facility] BMI Calculated 2016-07-12 18:04:00 [facility] Height 2016-07-12 18:04:00 157.48 [facility] Procedures Procedure Date / Time Performed Performing Clinician Maryt lerner Arthroscopy of knee [facility] Her king [facility] of [facility] anthony Cholecystectomy [facility] Planned Activity Planned Date Details Comments Source Future Scheduled Test 2013-08-03 21:02:36 Plan of Care [code = 1877 6-5] [facility] Encounters Start Date/Time End Date/Time Encounter Type Admission Type [facility] Facility Care Department Encounter ID Source 2018-07-11 11:55:00 2018-07-11 15:10:00 Departed Emergency Room 1 KELLY DAVALOS [facility] [id number] [facility] 2017-08-15 09:35:00 2017-08-15 23:59:00 [facility] [id number] 2016-12-23 13:52:00 2016-12-23 23:59:00 [facility] [id number] 2016-12-20 14:15:00 2016-12-20 23:59:00 [facility] [id number] 2016-07-13 08:31:00 2016-07-13 11:00:00 Outpatient [place]iles [place] [id number] 2013-08-03 16:02:36 2013-08-03 16:02:36 Outpatient [facility] [id number] 2013-07-17 15:32:52 2013-07-17 15:32:52 Outpatient [facility] [id number] 2013-03-05 16:32:10 2013-03-05 16:32:09 Outpatient [facility] [place] [id number] 2013-01-10 12:04:15 2013-01-10 12:04:15 Outpatient [facility] [id number] 2013-01-09 17:46:29 2013-01-09 17:46:29 Outpatient [facility] [id number] Results Test Description Test Time Test Comments Results Result Comments Source SCR MAMM BILATERAL REHANA CAD DIGITAL 2018-12-12 10:16:33 - SCR MAMM BILATERAL REHANA CAD DIGITALBILATERAL DIGITAL SCREENING MAMMOGRAM 3D/2D WITH CAD: 12/08/2018CLINICAL: Asymptomatic. Digital breast tomosynthesis was performed in addition to routine CC and MLO views. Current mammographic images were evaluated by either a [employer] M-Vu or a [employer] ImageChecker CAD (computer aided detection system). Comparison [...] one year. Harris Calderón M.D. ss/penrad:12/12/2018 10:16:33 Director Construction Services: Pam HILL, [facility]-FWletter sent: BIRADS 1-2 Normal Mammogram BI-RADS: 2 Benign Erythrocyte Sedimentation Rate 2018-07-11 13:51:00 Test Item Erythrocyte Sedimentation Rate (test code = 4537-7) 25 0- [id number] 12:44:00 [facility] [address] [address] Patient Name: MUNIRA GOLDMAN MR #: [id number] : 1940 Age/Sex: 77/F Req #: [id number] Adm Physician: Ordered by: KELLY DAVALOS MD Report #: [id number] Location: [facility] Room/Bed: Procedure: [id number] HOPD/CT BRAIN WO-HOPD Exam Date: 07/11/18 Exam [...] c microvascular ischemic change. Signed by: Dr. Shawn Mims M.D. on 12:45 PM Dictated By: SHAWN DYSON MD 1245 Transcribed By: AUSTEN on 07/11/18 1245 COPY TO: KELLY DAVALOS MD
--- OUTSIDE RECORDS SUMMARY | 2019-11-21 16:53 | XMS REPORT | Continuity of Care Document ---
Author Author Vannessa Paisley [place] MUNIRA [place] Address Unknown Phone Unavailable Care Team Providers Care Senior Buyer Name Role Phone [employer] Unavailable Un available Problems Problem Status Onset Date Classification Date Reported Comments Source E04.1 Active 08/08/2017 [facility] M23.209 E03.9 Active 12/02/2016 [facility] UNK Active 0 06/17/2016 [facility] Anxiety (finding) Resolved Problem 08/18/2017 [facility] Dysphagia (disorder) Resolved Problem 08/18/2017 [facility] Diabetes mellitus (disorder) R esolved Problem 01/2018 [facility] Glaucoma (disorder) Resolved Problem 08/18/2017 [facility] History of - musculoskeletal disease (co ntext-dependent category) Resolved Pr oblem 08/18/2017 [facility] Hyperlipidemia (disorder) Reso lved Problem 01/2018 [facility] Hypertensive disorder, systemic arterial (disorder) Resolved Problem 08/18/2017 [facility] Hypothyroidism (disorder) Reso lved Problem 01/2018 [facility] Hypertension Active 08/03/2013 [facility] Hyperlipidemia Active 08/03/2013 [facility] Hyperglycemia Active 08/03/2013 [facility] Hypothyroidism Active 08/03/2013 [facility] Diabetes Mellitus Active 08/03/2013 [facility] Arthralgia Of The Left Knee/Patella/Tibia/Fibula Active 08/03/2013 [facility] Vaccines Prophylactic Need Against Influenza Active 08/03/2013 [facility] Limping Active 08/03/2013 [facility] Knee Swelling Active 08/03/2013 [facility] DERANGEMENT OF UNSP MENISCUS DUE TO OLD Active [facility] HYPOTHYROIDISM, UNSPECIFIED Ac tive [facility] Medications Medication Details Route Status Patient Instructions Ordering Provider Order Date Source Sodium Chloride 0.154 MEQ/ML Injectable Solution 1,000 mL, Rate: 25 ml/hr, Infuse over: 40 hr, Route: IV, Dosing Weight 60 kg, Total Volume: 1,000, Start date: 07/13/16 8:36:00 CDT, Duration: 1 day, Stop date: 07/14/16 8:35:00 CDT Inactive 07/13/2016 [facility] Vitamin D2 PO, 0 Refill(s) Active 07/12/2016 [facility] levothyroxine 50 mcg (0.05 mg) oral tablet 50 microgram = 1 tab, PO, Daily, 0 Refill(s) Active 07/12/2016 [facility] lisinopril 20 mg oral tablet 2 0 mg = 1 tab, PO, Daily, 0 Refill(s) Active 07/12/2016 [facility] hydrochlorothiazide 12.5 mg oral tablet 12.5 mg = 1 tab, PO, Daily, 0 Refill(s) Active 07/12/2016 [facility] latanoprost 0.05 MG/ML Ophthalmic Solution 1 drp, QPM, 0 Refill(s) Active 07/12/2016 [facility] Brimonidine tartrate 2 MG/ML / Timolol 5 MG/ML Ophthalmic Solution [Combigan] 1 drp, BOTH EYES, Q12H, 0 Refill(s) Active 07/12/2016 [facility] Vitamin B12 0 Refill(s) Active 07/12/2016 [facility] Meloxicam 7.5 MG Oral Tablet ; Start Date: 08/03/2013; End Date: (Active) Active 08/03/2013 [facility] ALPRAZolam 0.25 MG Oral Tablet ; Start Date: 05/21/2013 (Active) Active 05/21/2013 [facility] Diclofenac-Misoprostol 75-0.2 MG Oral Ta blet Delayed Release ; Start Date: 01/10/2013 (Active) Active 01/10/2013 [facility] Lisinopril-Hydrochlorothiazide 10-12.5 MG Oral Tablet ; Start Date: ; End Date: (Active) Inactive [facility] Fosamax 70 MG Oral Tablet (Ac tive) Active [facility] Lisinopril-Hydrochlorothiazide 10-12.5 MG Oral Tablet (Active) Active [facility] Levothyroxine Sodium 75 MCG Oral Tablet (Active) Active [facility] Latanoprost 0.005 % Ophthalmic Solution (Active) Active [facility] Allergies, Adverse Reactions, Alerts Substance Category Reaction Severity Reaction type Status Date Reported Comments Source cortisone Assertion Drug allergy Active [facility] penicillins Assertion Drug allergy Active [facility] Penicillins drug allergy drug allergy Active [facility] Cortisone NILSAD drug allergy drug allergy Active [facility] Immunizations Immunization Date Given Site Status Last Updated Comments Source Fluzone Intramuscular Injectable 01/10/2013 completed [facility] Influenza 02/01/2011 completed [facility] Td 09/18/2009 completed [facility] Pneumo (Pneumovax) 09/18/2009 completed [facility] Results No Data Provided for This [...] TI-RADS 3 nodules as described above. SL: [id number] 08/15/2017 [facility] Knee wo contrast MRI MR LEFT K [...] the meniscal undersurface. 4. Mild/moderate medial compartment pipe organ mechanic apprentice zafar chondromalacia. 5. 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 6. Mild degeneration of the posterior cr uciate ligament with ganglion cyst in the posterior intercondylar notch adjacent to the PCL. Thank you for referring your patient to [facility]. MARCUS: [id number] 12/23/2016 [facility] Thyroid US Patient Name: MUNIRA GOLDMAN : 1940; Age: 76 years y/o Female MR: [id number] Study: Thyroid US 12/20/2016 2:19 PM CDT [...] above. Other significant finding. SL: JMAT 12/20/2016 [facility] Consultation Notes No Data Provided for This Section Discharge Summaries No Data Provided for This Section History and Physicals No Data Provided for This Section Vital Signs Vital Sign Value Date Comments Source Systolic (mm Hg) 113 07/13/2016 [facility] Diastolic (mm Hg) 62 07/13/2016 [facility] Respitory Rate 16 07/13/2016 [facility] Systolic (mm Hg) 125 07/13/2016 [facility] Diastolic (mm Hg) 70 07/13/2016 [facility] Respitory Rate 14 07/13/2016 [facility] Systolic (mm Hg) 94 07/13/2016 [facility] Diastolic (mm Hg) 58 07/13/2016 [facility] Respitory Rate 17 07/13/2016 [facility] Weight 60 0 07/12/2016 [facility] BMI Calculated 24.19 07/12/2016 [facility] Height 157.48 cm 07/12/2016 [facility] Encounters Location Location Details Encounter Type Encounter Number Reason For Visit Attending Provider ADM Date DC Date Status Source AUDIT [id number] 01/09/2013 01/09/2013 [facility] ECL, Provi jasmina: CHRISTAL COLLADO, Status: Pen, Time: 10:30 AM [id number] 01/11/20 13 01/09/2013 [facility] AUDIT [id number] 01/10/2013 01/10/2013 [facility] AUDIT [id number] 03/05/2013 03/05/2013 [facility] AUDIT [id number] 07/17/2013 07/17/2013 [facility] AUDIT [id number] 08/03/2013 08/03/2013 [facility] Bedded Outpatient [id number] Giles Smith 07/13/2016 07/13/2016 [facility] Outpatient [id number] CHRISTAL COLLADO 12/20/2016 12/21/2016 [facility] Outpatient [id number] CHRISTAL COLLADO 12/23/2016 12/24/2016 [facility] Outpatient [id number] CHRISTAL COLLADO 08/15/2017 08/16/2017 [facility] Procedures Procedure Code Date Perfomer Comments Source Arthroscopy of knee [id number] [facility] Biopsy of breast [id number] [facility] Cataract surgery [id number] [facility] Cholecystectomy [id number] [facility] Partial hysterectomy [id number] [facility] Assessment and Plan No Data Provided for This Section Plan of Care Plan of Care Date Source [QLH] CBC (INCLUDES DIFF/PLT) 08/02/2013 Routine[QLH] CMP W/EGFR 08/02/2013 Routine[QH] LIPID PANEL WITH REFLEX TO DIRECT LDL 08/02/2013 Routine[QLH] HEMOGLOBIN A1c 08/02/2013 Routine[QLH] TSH, 3RD GENERATION W/REFLEX TO FT4 08/02/2013 Routine 08/03/2013 [facility] Social History Social History Date Source Social History TypeResponse Alcohol Past Smoking Status Never smoker; Exposure to Tobacco Smoke None; Cigarette Smoking Last 365 Days No; Reg Smoking Cessation Counseling No entered on: 07/12/16 07/12/2016 [facility] Marital History - Single (Active) Never A Smoker (Active) Occupation: Retired (Active) 08/03/2013 [facility] Family History Value Date S ource Maternal history of Cancer (Activ e) Paternal history of Congestive Heart Failure (Active) 08/03/2013 [facility] Maternal history of Cancer (Activ e) Paternal history of Congestive Heart Failure (Active) 07/17/2013 [facility] Maternal history of Cancer (Activ e) Paternal history of Congestive Heart Failure (Active) 03/05/2013 [facility] Maternal history of Cancer (Activ e) Paternal history of Congestive Heart Failure (Active) 01/10/2013 [facility] Maternal history of Cancer (Activ e) Paternal history of Congestive Heart Failure (Active) 01/09/2013 [facility] Advance Directives Order Name Results Value Date Source Advance Directives Advance Dir ectives No Advance Directives available. 08/03/2013 [facility] Advance Directives Advance Dir ectives No Advance Directives available. 07/17/2013 [facility] Advance Directives Advance Dir ectives No Advance Directives available. 03/05/2013 [facility] Advance Directives Advance Dir ectives No Advance Directives available. 01/10/2013 [facility] Advance Directives Advance Dir ectives No Advance Directives available. 01/09/2013 [facility] Functional Status No Data Provided for This Section
== END 2019-11-21 16:42 | disposition home or self-care (01) ==
LOC: FSED 15:00
DX: L25.9 Unspecified contact dermatitis, unspecified cause (principal); I10 Essential (primary) hypertension; E78.5 Hyperlipidemia, unspecified; H40.9 Unspecified glaucoma
CPT/HCPCS: 99282

== ENCOUNTER 2021-04-24 16:03 | Emergency (ER) | payer MEDICARE, OTHER ==
[~2021-04-24] VITALS: Ht 157.5 cm; Wt 48.5 kg
[2021-04-24] MEDS ORDERED: CLONIDINE HCL 0.1 MG TAB ONE (16:29)
[2021-04-24] MEDS ORDERED: CLONIDINE HCL 0.2 MG TAB PO ONE (16:30)
== END 2021-04-24 17:05 | disposition home or self-care (01) ==
LOC: FSED 16:20
DX: I10 Essential (primary) hypertension (principal); E78.5 Hyperlipidemia, unspecified; H40.9 Unspecified glaucoma; M25.562 Pain in left knee; M25.561 Pain in right knee
CPT/HCPCS: 99283

== ENCOUNTER 2021-05-15 20:50 | Emergency (ER) | payer MEDICARE ==
[~2021-05-15] VITALS: Ht 157.5 cm; Wt 48.5 kg
[2021-05-15] MEDS ORDERED: CLONIDINE HCL 0.1 MG TAB PO ONE (21:30)
[2021-05-15] MEDS ORDERED: CLONIDINE HCL 0.1 MG TAB ONE (21:39)
== END 2021-05-15 23:44 | disposition home or self-care (01) ==
LOC: FSED 21:00
DX: R20.2 Paresthesia of skin (principal); I10 Essential (primary) hypertension; E11.9 Type 2 diabetes mellitus without complications; E78.5 Hyperlipidemia, unspecified; R94.31 Abnormal electrocardiogram [ECG] [EKG]
CPT/HCPCS: 70450; 80053; 81003; 82553; 84484; 85025; 93005; 99284

== ENCOUNTER 2024-04-29 02:58 | Emergency (ER) | payer MEDICARE ==
[~2024-04-29] VITALS: Ht 157.5 cm; Wt 50.9 kg
[~2024-04-29 02:58] MED LIST changes: +AMLODIPINE BESYL5 MG PO; +LISINOPRIL10 MG PO
[2024-04-29] MEDS: HYDRALAZINE HCL 20 MG/ML VIAL IV STA (03:47)
[2024-04-29] MEDS: CLONIDINE HCL 0.1 MG TAB PO ONE (03:48)
[2024-04-29] MEDS: SODIUM CHLORIDE 0.9% 1000ML 1,000 ML IV ONE (05:14)
[2024-04-29 05:53] VITALS: BP 113/54; PULSE 68; RESP 16; TEMP 97.7; O2SAT 100
== END 2024-04-29 06:32 | disposition home or self-care (01) ==
LOC: FSED 03:05
DX: I10 Essential (primary) hypertension (principal); E11.9 Type 2 diabetes mellitus without complications; E78.5 Hyperlipidemia, unspecified; E03.9 Hypothyroidism, unspecified; H40.9 Unspecified glaucoma
CPT/HCPCS: 80053; 83880; 84484; 85025; 99284; J0360; J7030

== ENCOUNTER 2024-09-26 14:49 | Inpatient (IN) | payer MEDICARE ==
[~2024-09-26] VITALS: Ht 157.5 cm; Wt 51.4 kg
[2024-09-26] MEDS ORDERED: CLONIDINE HCL0.1 MG PO (15:02)
[2024-09-26] MEDS ORDERED: IOPAMIDOL 370 MG/ML 100 ML INFUS..BTL INJ ONE (17:15)
[2024-09-26] MEDS ORDERED: SODIUM CHLORIDE 0.9% 100 ML ONE (17:15)
[2024-09-26] MEDS: HYDRALAZINE HCL 20 MG/ML VIAL IV STA (19:52)
[2024-09-26] MEDS: ASPIRIN 325 MG TAB PO ONE (19:56)
[2024-09-26] MEDS ORDERED: SODIUM CHLORIDE FLUSH 10 ML SYR INJ PRN (20:00)
[2024-09-26 22:07] VITALS: PULSE 85; RESP 17; TEMP 98.2
[2024-09-26 23:00] VITALS: BP 152/54; PULSE 83; RESP 18; TEMP 98.3; O2SAT 100
[2024-09-27] VITALS: BP 152/54; PULSE 83; RESP 18; TEMP 98.3; O2SAT 100
[2024-09-27 04:00] VITALS: BP 154/61; PULSE 71; RESP 18; TEMP 97.5; O2SAT 100
[2024-09-27] MEDS ORDERED: LATANOPROST2.5 ML OP (06:22)
[2024-09-27] MEDS ORDERED: BRIMONIDINE-TIMO5 ML OP (06:23)
[2024-09-27 07:38] LABS: INR 0.92; PROTHROMBIN TIME 13.2 seconds (11.9-14.5)
[2024-09-27 07:39] LABS: PARTIAL THROMBOPLASTIN TIME 34.3 seconds (23.8-35.5)
[2024-09-27 07:40] VITALS: BP 108/44; PULSE 67; RESP 17; TEMP 97.8; O2SAT 100
[2024-09-27 09:17] VITALS: BP 111/44; PULSE 67; RESP 17; TEMP 97.8; O2SAT 100
[2024-09-27 11:36] VITALS: BP 152/59; PULSE 67; RESP 17; TEMP 97.9; O2SAT 100
[2024-09-27 16:34] VITALS: BP 147/62; PULSE 68; RESP 17; TEMP 97.7; O2SAT 100
== END 2024-09-27 17:46 | disposition home or self-care (01) | DRG 556 ==
LOC: FSED 14:58 → ERHOLD 19:54 → MED/SURG 22:57
PROVIDERS: ADMIT Internal Medicine; ATTEND Internal Medicine
DX: M25.812 Other specified joint disorders, left shoulder (principal); I10 Essential (primary) hypertension; E11.9 Type 2 diabetes mellitus without complications; M19.049 Primary osteoarthritis, unspecified hand; M19.019 Primary osteoarthritis, unspecified shoulder; H40.9 Unspecified glaucoma; Z88.0 Allergy status to penicillin; Z88.8 Allergy status to other drugs, medicaments and biological substances; Z90.49 Acquired absence of other specified parts of digestive tract; Z90.710 Acquired absence of both cervix and uterus
CPT/HCPCS: 36415; 70496; 70498; 71046; 80048; 84484; 85025; 85610; 85730; 93005; 93306; 99252; 99284; G0378; J0360; J7050; Q9967